=== PATIENT | male | born 1960 | race Hispanic/Latino ===

== ENCOUNTER 2017-07-07 19:59 | Emergency (ER) | payer OTHER ==
[2017-07-07 20:41] LABS: Basophils % (Auto) 1.3 % (0.0-1.8); Eosinophils % (Auto) 0.3 % (0.0-4.3); Hematocrit 45.6 % (35.5-45.6); Hemoglobin 15.6 gm/dl (11.8-15.2); Mean Corpuscular HGB Conc 34 % (32-34); Mean Corpuscular Hemoglobin 35 pg (28-32); Mean Corpuscular Volume 102 fl (84-94); Platelet Count 213 K/mm3 (140-440); Red Blood Count 4.47 M/mm3 (3.65-5.03); Red Cell Distribution Width 13.9 % (13.2-15.2); White Blood Count 7.9 K/mm3 (4.5-11.0)
[2017-07-07 21:02] LABS: Anion Gap 22 mmol/L; BUN/Creatinine Ratio 10; Blood Urea Nitrogen 6 mg/dL (9-20); Calcium 8.5 mg/dL (8.4-10.2); Carbon Dioxide 27 mmol/L (22-30); Chloride 92.4 mmol/L (98-107); Glucose 108 mg/dL (75-100); Potassium 3.7 mmol/L (3.6-5.0); Sodium 138 mmol/L (137-145)
--- NOTE | 2017-07-08 07:34 | XRay Report ---
CHEST 2 VIEWS INDICATION: Shortness of breath. COMPARISON: None similar at this institution. FINDINGS: Frontal and lateral chest radiographs demonstrate normal cardiomediastinal silhouette and clear lungs, given the inspiration. Right hemidiaphragm slightly elevated. Couple of small hilar calcifications versus blood vessels on-end. Intact bones. CONCLUSION: No acute chest process, as described. Thank you for the opportunity to participate in this patient's care.
[2017-07-08] MEDS ORDERED: MOTRIN PO ONE (10:48)
[2017-07-08] MEDS ORDERED: TYLENOL PO ONE (10:48)
[2017-07-08] MEDS ORDERED: DILAUDID IM ONE (10:48)
--- NOTE | 2017-07-08 10:49 | Emergency Department Report ---
ED General Adult HPI - General Chief complaint: Dyspnea/Respdistress Stated complaint: SHINGLES/ALANNA Time Seen by Provider: 07/08/17 10:14 Source: patient, RN notes reviewed Mode of arrival: Ambulatory Limitations: No Limitations - History of Present Illness Initial comments: This is a 57-year-old male who was previously unknown to this provider. Patient presents to the ER with a rash to the back and scalp of his neck for 2-1 /2 weeks. The rash is burning and sharp in nature. It only radiates the areas of skin that are involved. Patient denies fevers, chills does admit to cough, sore throat, feels like he is very anxious and having shortness of breath with hyperventilation. Patient has some pain with swallowing. This is also going on for a few weeks. -: Gradual Location: head, neck Radiation: non-radiation Severity scale (0 -10): 8 Quality: burning, stabbing, aching Consistency: constant Improves with: medication Associated Symptoms: cough, headaches, shortness of breath, weakness. denies: confusion, chest pain - Related Data Previous Rx's Medication Instructions Recorded Last Taken Type Acetaminophen [Tylenol Arthritis] 650 mg PO Q6HR PRN #30 tablet.er 07/08/17 Unknown Rx Ibuprofen [Motrin] 600 mg PO Q8H PRN #30 tablet 07/08/17 Unknown Rx Lidocaine [Lidoderm] 1 each TP BID PRN #10 adh..patch 07/08/17 Unknown Rx oxyCODONE [Roxicodone] 5 mg PO Q6HR PRN #20 tablet 07/08/17 Unknown Rx Allergies Allergy/AdvReac Type Severity Reaction Status Date / Time No Known Allergies Allergy Unverified 07/07/17 20:05 ED Review of Systems ROS: Stated complaint: SHINGLES/ALANNA Other details as noted in HPI Constitutional: malaise. denies: fever Eyes: denies: vision change Respiratory: denies: wheezing Cardiovascular: denies: chest pain Gastrointestinal: denies: abdominal pain Musculoskeletal: arthralgia Skin: rash, lesions Neurological: weakness Psychiatric: anxiety ED Past Medical Hx - Past Medical History Hx Hypertension: Yes Additional medical history: neuropathy - Surgical History Hx Cholecystectomy: Yes Hx Appendectomy: Yes Additional Surgical History: Hernia repair - Social History Smoking Status: Never Smoker Substance Use Type: Alcohol - Medications Home Medications: Home Medications Medication Instructions Recorded Confirmed Last Taken Type Acetaminophen [Tylenol Arthritis] 650 mg PO Q6HR PRN #30 tablet.er 07/08/17 Unknown Rx Ibuprofen [Motrin] 600 mg PO Q8H PRN #30 tablet 07/08/17 Unknown Rx Lidocaine [Lidoderm] 1 each TP BID PRN #10 adh..patch 07/08/17 Unknown Rx oxyCODONE [Roxicodone] 5 mg PO Q6HR PRN #20 tablet 07/08/17 Unknown Rx ED Physical Exam - General Limitations: No Limitations General appearance: alert, in distress - Head Head exam: Present: atraumatic, normocephalic, other (patient has encrusted lesions noted on the left posterior occipital scalp, and left-sided paracervical region. There is somewhat tender, there is no capitis, there is no streaking, there is some surrounding erythema) - Eye Eye exam: Present: normal appearance, PERRL, EOMI, other (Extraocular movements intact. Tongue midline. No facial droop. Facial sensation intact to light touch in the V1, V2, V3 distribution bilaterally. 5 and 5 strength in 4 extremities.. Sensation is intact to light touch in 4 extremities.). Absent: nystagmus - ENT ENT exam: Present: normal exam, normal orophraynx, mucous membranes moist, normal external ear exam - Neck Neck exam: Present: normal inspection, full ROM - Respiratory Respiratory exam: Present: normal lung sounds bilaterally. Absent: respiratory distress - Cardiovascular Cardiovascular Exam: Present: regular rate, normal rhythm, normal heart sounds. Absent: systolic murmur, diastolic murmur, rubs, gallop - GI/Abdominal GI/Abdominal exam: Present: soft, normal bowel sounds. Absent: distended, tenderness, guarding, rebound, rigid, pulsatile mass - Rectal Rectal exam: Present: deferred - Extremities Exam Extremities exam: Present: normal inspection, full ROM, normal capillary refill. Absent: pedal edema, calf tenderness - Back Exam Back exam: Present: normal inspection, full ROM. Absent: tenderness, paraspinal tenderness, vertebral tenderness - Neurological Exam Neurological exam: Present: alert, oriented X3, CN II-XII intact, other ( Extraocular movements intact. Tongue midline. No facial droop. Facial sensation intact to light touch in the V1, V2, V3 distribution bilaterally. 5 and 5 strength in 4 extremities.. Sensation is intact to light touch in 4 extremities.). Absent: motor sensory deficit - Psychiatric Psychiatric exam: Present: normal affect, normal mood - Skin Skin exam: Present: warm, rash, erythema ED Course Vital Signs 07/07/17 07/08/17 07/08/17 20:05 07:42 11:23 Temperature 97.8 F 97.7 F 97.9 F Pulse Rate 88 94 H 86 Respiratory 18 20 16 Rate Blood Pressure 164/96 142/95 Blood Pressure 138/86 [Left] O2 Sat by Pulse 98 98 100 Oximetry 07/08/17 12:26 Temperature Pulse Rate 84 Respiratory 16 Rate Blood Pressure Blood Pressure 115/65 [Left] O2 Sat by Pulse 100 Oximetry - Reevaluation(s) Reevaluation #1: 07/08/17 15:15 Patient reported that his pain was much better at the time of discharge. He rated it as a 2 out of 10. ED Medical Decision Making - Lab Data Result diagrams: 07/07/17 20:27 07/07/17 20:27 Vital Signs 07/07/17 07/08/17 07/08/17 20:05 07:42 11:23 Temperature 97.8 F 97.7 F 97.9 F Pulse Rate 88 94 H 86 Respiratory 18 20 16 Rate Blood Pressure 164/96 142/95 Blood Pressure 138/86 [Left] O2 Sat by Pulse 98 98 100 Oximetry Lab Results 07/07/17 07/07/17 Range/Units 20:27 20:27 WBC 7.9 (4.5-11.0) K/mm3 RBC 4.47 (3.65-5.03) M/mm3 Hgb 15.6 H (11.8-15.2) gm/dl Hct 45.6 (35.5-45.6) % MCV 102 H (84-94) fl MCH 35 H (28-32) pg MCHC 34 (32-34) % RDW 13.9 (13.2-15.2) % Plt Count 213 (140-440) K/mm3 Lymph % (Auto) 27.6 (13.4-35.0) % Baldwin % (Auto) 8.2 H (0.0-7.3) % Eos % (Auto) 0.3 (0.0-4.3) % Baso % (Auto) 1.3 (0.0-1.8) % Lymph # 2.2 (1.2-5.4) K/mm3 Baldwin # 0.6 (0.0-0.8) K/mm3 Eos # 0.0 (0.0-0.4) K/mm3 Baso # 0.1 (0.0-0.1) K/mm3 Seg Neutrophils % 62.6 (40.0-70.0) % Seg Neutrophils # 5.0 (1.8-7.7) K/mm3 Sodium 138 (137-145) mmol/L Potassium 3.7 (3.6-5.0) mmol/L Chloride 92.4 L (98-107) mmol/L Carbon Dioxide 27 (22-30) mmol/L Anion Gap 22 mmol/L BUN 6 L (9-20) mg/dL Creatinine 0.6 L (0.8-1.5) mg/dL Estimated GFR > 60 ml/min BUN/Creatinine Ratio 10 % Glucose 108 H (75-100) mg/dL Calcium 8.5 (8.4-10.2) mg/dL Troponin T < 0.010 (0.00-0.029) ng/mL - EKG Data -: EKG Interpreted by Me - EKG Data When compared to previous EKG there are: previous EKG unavailable 07/08/17 11:45 Normal sinus, 81 bpm, normal axis, , QTC 470 ms, not morphologically consistent with ST elevation myocardial infarction - Radiology Data Radiology results: report reviewed, image reviewed X-ray of the chest is negative for acute disease - Medical Decision Making Differential diagnosis, including but not limited to: Shingles/zoster/anxiety Assessment and plan: 57-year-old male with left-sided encrusted lesions, most likely zoster. Patient has been having these lesions for greater than 72 hours , there is therefore no utility in initiating antiviral therapy as history he is not developing new lesions. Complaining of a mild sore throat, his pharyngeal exam was unremarkable. He is tolerating water and liquid feeds. Had some nonspecific shortness of breath from hyperventilation, this has been going on for a while, no pulmonary embolus or DVT risk factors, low risk by well 's criteria, troponin sent prior to my exam and evaluation, based on history and physical, I find the patient to be low risk by FLO score, low risk by Pennington' s score, I do not believe he requires further inpatient acute coronary syndrome risk stratification. He will be discharged with pain medication, he and family are instructed that post herpetic neuralgia may persist, and he can follow up with outpatient neurology, infectious disease, primary care, or pain management. He will be discharged at this time, return precautions are reviewed. Critical care attestation.: If time is entered above; I have spent that time in minutes in the direct care of this critically ill patient, excluding procedure time. ED Disposition Clinical Impression: Zoster Disposition: DC-01 TO HOME OR SELFCARE Is pt being admited?: No Does the pt Need Aspirin: No Condition: Stable Instructions: Herpes Zoster (ED) Additional Instructions: As we discussed, lesions most likely coming from shingles/zoster. Apply warm compresses as directed and as needed, wash with gentle soap and water at least once daily, and otherwise keep dry, and do not apply any creams/appointments. Take the pain medications as directed, and follow-up with either infectious disease, primary care doctor or pain specialist within the next [address] Caputo is a local primary care doctor. Dr. Leary is a local infectious disease doctor. Dr. Molina is a local pain doctor. Use the Lidoderm pain patches as directed. Please be aware that pain from lesions like this may persist for days, weeks, months. Return to the ER right away with new pain, worsened pain, migration of pain, fevers, chills, lethargy, irritability, projectile vomiting, change in mental status, confusion, inability to tolerate liquid feeds. Prescriptions: Acetaminophen [Tylenol Arthritis] 650 mg PO Q6HR PRN #30 tablet.er PRN Reason: Pain Ibuprofen [Motrin] 600 mg PO Q8H PRN #30 tablet PRN Reason: Pain Lidocaine [Lidoderm] 1 each TP BID PRN #10 adh..patch PRN Reason: Pain oxyCODONE [Roxicodone] 5 mg PO Q6HR PRN #20 tablet PRN Reason: Pain Referrals: ТАТЬЯНА CASTRO MD [Staff Physician] - 3-5 Days AIDA CAPUTO MD [Staff Physician] - 3-5 Days CASSIE DAVID MD [Staff Physician] - 3-5 Days
[2017-07-08 12:26] VITALS: BP 115/65
== END 2017-07-08 12:26 | disposition home or self-care (01) ==
LOC: EDBD → ED 19:59
DX: B02.9 Zoster without complications (principal); I10 Essential (primary) hypertension
CPT/HCPCS: 36415; 71020; 80048; 84484; 85025; 93005; 93010; 96372; 99284; J1170

== ENCOUNTER 2019-01-22 15:49 | Emergency (ER) | payer OTHER ==
[2019-01-22] MEDS ORDERED: GEODON IM ONE (16:00)
[2019-01-22] MEDS ORDERED: ATIVAN IM ONE (16:01)
[2019-01-22] MEDS ORDERED: ATIVAN ONE (16:04)
[2019-01-22 16:45] LABS: Basophils # (Auto) 0.1 K/mm3 (0.0-0.1); Basophils % (Auto) 0.8 % (0.0-1.8); Eosinophils # (Auto) 0.1 K/mm3 (0.0-0.4); Eosinophils % (Auto) 1.4 % (0.0-4.3); Hematocrit 49.1 % (35.5-45.6); Hemoglobin 16.9 gm/dl (11.8-15.2); Lymphocytes # (Auto) 3.5 K/mm3 (1.2-5.4); Lymphocytes % (Auto) 49.8 % (13.4-35.0); Mean Corpuscular HGB Conc 34 % (32-34); Mean Corpuscular Volume 103 fl (84-94); Monocytes # (Auto) 0.7 K/mm3 (0.0-0.8); Monocytes % (Auto) 9.4 % (0.0-7.3); Platelet Count 218 K/mm3 (140-440); Red Blood Count 4.76 M/mm3 (3.65-5.03); Red Cell Distribution Width 15.3 % (13.2-15.2)
[2019-01-22 17:02] LABS: Alanine Aminotransferase 34 units/L (7-56); Albumin 4.3 g/dL (3.9-5); BUN/Creatinine Ratio 13; Blood Urea Nitrogen 9 mg/dL (9-20); Calcium 8.9 mg/dL (8.4-10.2); Hemolysis Index 19
--- NOTE | 2019-01-22 17:16 | Emergency Department Report ---
<ALEXIS TONY - Last Filed: 01/22/19 19:52> ED Alcohol HPI - General Chief Complaint: Alcohol Stated Complaint: EYE PAIN/ETOH Time Seen by Provider: 01/22/19 16:00 Source: family, EMS Mode of arrival: Stretcher Limitations: Other - History of Present Illness Initial Comments: 58-year-old male with a past medical history hypertension, alcohol abuse, and chronic visual deficits presents to the hospital complains of not being able to see and leg pain. Patient has been drinking alcohol all day. EMS called due to increased agitation and visual complaints. His states that he has baseline decreased vision in his right eye. His and patient do report that he got any substances in his eyes. He is hysterical and we are unable to get any vital signs for him. EMS vital signs reviewed. He should now complaining of chronic ongoing bilateral leg pain that is progressively getting worse. Patient at the bedside and states that patient drinks often but it drinks on a usual today. He typically self medicates due to chronic leg pain secondary to herniated disc or sciatica. He also has a chronic ongoing complaining of decreased vision in right eye but has not yet followed up with books salesperson. states he quickly complains of his vision more when he is drunk. - Related Data Previous Rx's Medication Instructions Recorded Last Taken Type Acetaminophen [Tylenol Arthritis] 650 mg PO Q6HR PRN #30 tablet.er 07/08/17 Unknown Rx Ibuprofen [Motrin] 600 mg PO Q8H PRN #30 tablet 07/08/17 Unknown Rx Lidocaine [Lidoderm] 1 each TP BID PRN #10 adh..patch 07/08/17 Unknown Rx oxyCODONE [Roxicodone] 5 mg PO Q6HR PRN #20 tablet 07/08/17 Unknown Rx Allergies Allergy/AdvReac Type Severity Reaction Status Date / Time No Known Allergies Allergy Unverified 07/07/17 20:05 ED Review of Systems Comment: All other systems reviewed and negative ED Past Medical Hx - Past Medical History Previous Medical History?: Yes Hx Hypertension: Yes Additional medical history: neuropathy, chronic back pain, bursitis hips, sciatica, 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 - Surgical History Past Surgical History?: Yes Hx Cholecystectomy: Yes Hx Appendectomy: Yes Additional Surgical History: Hernia repair - Social History Smoking Status: Current Every Day Smoker Substance Use Type: Alcohol - Medications Home Medications: Home Medications Medication Instructions Recorded Confirmed Last Taken Type Acetaminophen [Tylenol Arthritis] 650 mg PO Q6HR PRN #30 tablet.er 07/08/17 Unknown Rx Ibuprofen [Motrin] 600 mg PO Q8H PRN #30 tablet 07/08/17 Unknown Rx Lidocaine [Lidoderm] 1 each TP BID PRN #10 adh..patch 07/08/17 Unknown Rx oxyCODONE [Roxicodone] 5 mg PO Q6HR PRN #20 tablet 07/08/17 Unknown Rx ED Physical Exam - General Limitations: Other - Other Other exam information: General: Alert, agitated Head exam: Atraumatic, Eyes exam: Bilateral conjunctiva injection ENT: Moist mucous membrane Neck exam: Normal inspection Respiratory exam: Clear to auscultation bilateral Cardiovascular: Normal rate and rhythm Abdomen: Soft, nondistended, and nontender, with normal bowel sounds, no rebound, or guarding Extremity: Full range of motion normal inspection no deformity, 2+ Dp pulses Back: Normal Inspection, full range of motion, no tenderness Neurologic: Alert, oriented x3, cranial nerves intact, no motor or sensory deficit Psychiatric: normal affect, normal mood Skin: Warm, dry, intact ED Course - Reevaluation(s) Reevaluation #1: 01/22/19 18:26 Patient medicated with Ativan and Geodon in the ED so that he can see vitals in treatment. Reevaluation #2: 01/22/19 19:52 Dr Andrews will f/u and reassess patient. He is currently still sleeping. ED Medical Decision Making - Lab Data Result diagrams: 01/22/19 16:15 01/22/19 16:15 - Differential Diagnosis drug abuse, alcohol intoxication, history Critical Care Time: No ED Disposition Clinical Impression: Acute alcohol intoxication, Visual impairment Disposition: DC-01 TO HOME OR SELFCARE Is pt being admited?: No Does the pt Need Aspirin: No Condition: Stable Instructions: Sciatica (ED), Abuse of Alcohol (ED), Blurred Vision (ED) Additional Instructions: Follow up with your doctor or the clinic/doctor provided. Return if symptoms worsen as indicated by your discharge instructions [facility] [Primary Care Provider] - 3-5 Days NABOR CUTLER MD [Staff Physician] - 3-5 Days (Ophthalmology) EVERARDO FANG MD [Staff Physician] - 3-5 Days (Ophthalmology) [facility] [Outside] - 3-5 Days [facility] [Provider Group] - 3-5 Days <PRASANNA ANDREWS - Last Filed: 01/23/19 00:59> ED Review of Systems ROS: Stated complaint: EYE PAIN/ETOH Other details as noted in HPI ED Course Vital Signs 01/22/19 01/22/19 01/22/19 16:01 16:05 17:30 Temperature 97.6 F Pulse Rate 97 H 90 Respiratory 20 16 Rate Blood Pressure 155/103 Blood Pressure 116/70 [Left] O2 Sat by Pulse 100 96 Oximetry 01/22/19 01/22/19 18:54 19:24 Temperature 98.2 F Pulse Rate 80 92 H Respiratory 14 13 Rate Blood Pressure Blood Pressure 115/76 117/79 [Left] O2 Sat by Pulse 98 93 Oximetry ED Medical Decision Making - Lab Data Result diagrams: 01/22/19 16:15 01/22/19 16:15 - Medical Decision Making Sign out received from Dr Tony. 58 yo M with alcohol intoxication, ETOH level of 380. History of alcohol abuse. Pt required sedation upon presentation. Pt has been sleeping peacefully. Currently awake and alert. Pt is calm, answers questions appropriately, gait is normal. He is currently standing, dressing himself, stating that he is ready to go home. He has no complaints at this time. is currently at bedside and states that she would like to take pt home. States she feels comfortable that he is at his baseline and will be safe. BP currently 128/78. Will discharge home. Critical care attestation.: If time is entered above; I have spent that time in minutes in the direct care of this critically ill patient, excluding procedure time. ED Disposition Is pt being admited?: No
[2019-01-22 18:14] LABS: Amphetamine Screen,Urine PRESUMPTIVE NEGATIVE; Benzodiazepines Screen,Urine PRESUMPTIVE NEGATIVE; Cannabinoid Screen,Urine PRESUMPTIVE NEGATIVE; Cocaine Screen,Urine PRESUMPTIVE NEGATIVE; Methadone Screen,Urine PRESUMPTIVE NEGATIVE; Opiate Screen,Urine PRESUMPTIVE NEGATIVE
[2019-01-22 23:19] VITALS: BP 128/78
== END 2019-01-22 23:00 | disposition home or self-care (01) ==
LOC: ED 15:49
DX: F10.129 Alcohol abuse with intoxication, unspecified (principal); H54.7 Unspecified visual loss; I10 Essential (primary) hypertension; Z90.49 Acquired absence of other specified parts of digestive tract; Z90.89 Acquired absence of other organs; F17.200 Nicotine dependence, unspecified, uncomplicated
CPT/HCPCS: 36415; 80053; 80307; 83735; 85025; 96372; 99283; G0480; J2060; J3486; 80320

== ENCOUNTER 2019-02-07 17:21 | Emergency (ER) | payer OTHER ==
[2019-02-07 18:24] VITALS: BP 143/87
== END 2019-02-07 18:54 | disposition left against medical advice (07) ==
LOC: ED 17:21
DX: M54.89 Other dorsalgia (principal); Z53.21 Procedure and treatment not carried out due to patient leaving prior to being seen by health care provider